=== PATIENT | female | born 1965 | race Caucasian/White ===

== ENCOUNTER 2024-09-21 16:21 | Emergency (ER) | payer OTHER ==
[2024-09-21] MEDS: Bupivacaine 0.5%/EPINEPHrine 1:200,000 10 ML SDV INJECT ONE (17:30)
[2024-09-21 18:05] VITALS: BP 122/76; PULSE 86
== END 2024-09-21 18:00 | disposition home or self-care (01) ==
LOC: DL.ED 16:21
DX: K64.5 Perianal venous thrombosis (principal); Z91.018 Allergy to other foods; Z88.2 Allergy status to sulfonamides; Z79.899 Other long term (current) drug therapy; Z86.16 Personal history of COVID-19
CPT/HCPCS: 46083; 99283; J0665; J2003